=== PATIENT | male | born 2000 | race Caucasian/White ===

== ENCOUNTER 2020-01-28 23:35 | Emergency (ER) | payer OTHER, SELFPAY ==
[2020-01-28 23:38] VITALS: BP 138/85; PULSE 111; RESP 14; TEMP 37.1; O2SAT 99; BMI 21.9
--- NOTE | 2020-01-28 23:54 | XR_ITS ---
PROCEDURE: XR HIP LT 2-3V W/PELVIS CLINICAL INDICATION: pain COMPARISON: No exams were available for comparison FINDINGS: No fracture or dislocation is evident. No significant degenerative change. No lytic or blastic change. Unremarkable soft tissues. IMPRESSION: No acute findings. Dictated by: Ion Keenan MD 01/29/2020 05:23 Ion Keenan MD in [place] 01/29/2020 05:23
--- NOTE | 2020-01-29 00:28 | HMH.EDLOEX ---
ED Disposition Clinical Impression: Contusion of hip, left Qualifiers: Encounter type: initial encounter Qualified Code(s): S70.02XA - Contusion of left hip, initial encounter Disposition: Home, Self-Care Condition on Discharge: Good Instructions: DI for Hip Pain Additional Instructions: use meds and see pcp for follow up Prescriptions: Meloxicam [Mobic 15 mg tab] 15 mg PO DAILY #10 tab Transmission Status: Pending to [facility] Referrals: Cassie Galeas APRN [Primary Care Provider] - - Critical Care Critical Care Time: No Attestation: On 01/28/20, the high probability of a clinically significant, sudden or life threatening deterioration of the following system(s) required my full and direct attention, intervention and personal management. The time I documented below is in addition to time spent performing reported procedures but includes the following listed in this critical care notation. Medical Decision Making - Medical Records Medical records reviewed: Yes: I reviewed the patient's medical records. - [place] Inquiry Pt receiving controlled substance: No Vital Signs: 01/28/20 23:38 Temperature 98.7 F Temperature Source Oral Pulse Rate [Right Brachial] 111 H Respiratory Rate 14 Blood Pressure [Right Arm] 138/85 Blood Pressure Mean [Right Arm] 102 02 Sat by Pulse Oximetry 99 - Lab Data Lab results reviewed: Yes: I reviewed the patient's lab results. Orders (Tests/Meds): ED MEDICATIONS Discontinued Medications Generic Name Dose Route Start Last Admin Trade Name Freq PRN Reason Stop Dose Admin Dexamethasone Sodium Phosphate 10 mg 01/28/20 23:45 01/29/20 01:07 Dexamethasone 4mg/Ml 5ml Mdv IM 02/27/20 23:44 Not Given Q6H VINITA Ketorolac Tromethamine 60 mg 01/28/20 23:56 01/29/20 01:07 Ketorolac 60mg/2ml Vial IM 01/28/20 23:57 Not Given ONCE ONE ORDERS Category Date Time Status CT hip LT wo con Stat Cat Scan 01/29/20 00:40 Taken XR hip LT 2-3V w/pelvis Stat Exams 01/28/20 23:54 Taken - Radiology Data #1 Image(s): Pelvis, Hip Image Reviewed: Yes I reviewed the patient's radiology image Preliminary Findings: No Fracture Seen - CT Data CT Scan: Other (hip) Time Received: 01:[address] Reviewed: Yes: I have viewed the radiologist's interpretation Preliminary Findings: No Fracture Seen Lower Extremity Injury HPI - General Chief Complaint: Extremity Injury, Lower Stated Complaint: Pain in left hip Time Seen by Provider: 01/29/20 00:28 Mode of Arrival: Ambulatory Source of Information: Patient, Medical Record Limitations: No Limitations Description of Symptoms (Recalled from ER Triage Doc. by RN): pt fell 3 days ago today pt states lt hip pain rating 7/10 not radiating anywhere able to ambulate. starting @ noon - History of Present Illness HPI Narrative: fall and injury to lt hip with persistent pain MD complaint: hip injury Onset (ago): day(s) Injury: Left: hip Type of Injury: blunt Place: home Severity: moderate Context: fall Associated symptoms: able to partially bear weight Other symptoms: none - Related Data Previous Rx's Medication Instructions Recorded Meloxicam [Mobic 15 mg tab] 15 mg PO DAILY #10 tab 01/29/20 Allergies Allergy/AdvReac Type Severity Reaction Status Date / Time No Known Drug Allergies Allergy Unknown Verified 01/29/20 00:01 [NKDA] [facility] History - Hepatitis A Screen Drug use history?: No High risk sexual behaviors?: No History of sexually transmitted infection?: No Currently employed?: No Childcare worker?: No Do you have indoor plumbing?: Yes Do you have electricity?: Yes Attestation statement:: This patient has been screened for Hepatitis A risk factors. I have reviewed the patient's past medical history: Yes - Social History Smoking Status: Never smoker Alcohol Intake: never Occupational Status: employed ROS Obtained: Yes All systems reviewed & no addition
--- NOTE | 2020-01-29 00:40 | CT_ITS ---
PROCEDURE: CT HIP LT WO CON CLINICAL HISTORY: injury Posttraumatic pain COMPARISON: No exams were available for comparison TECHNIQUE: Axial images obtained with sagittal and coronal reformats. All CT scans at the facility use one or more dose reduction, viz: automated exposure control, ma/kV adjustment per patient size (including targeted exams where dose is matched to indication, i.e. head), or iterative reconstruction technique. FINDINGS: No fracture or dislocation. No lytic or blastic change. No overlying soft tissue mass or hematoma IMPRESSION: No acute finding Dictated by: Ion Keenan MD 01/29/2020 05:44 Ion Keenan MD in [place] 01/29/2020 05:44
--- NOTE | 2020-01-29 01:16 | PC.NURSE ---
pt returned from ct
[2020-01-29 01:58] VITALS: BP 112/64; PULSE 70; RESP 16; TEMP 36.7; O2SAT 99
== END 2020-01-29 02:00 | disposition home or self-care (01) ==
PROVIDERS: Emergency Provider Emergency Medicine; PCP Nurse Practitioner Family
DX: S70.02XA Contusion of left hip, initial encounter (principal); W01.0XXA Fall on same level from slipping, tripping and stumbling without subsequent striking against object, initial encounter; Y92.019 Unspecified place in single-family (private) house as the place of occurrence of the external cause
CPT/HCPCS: 73502; 73700; 99282